=== PATIENT | male | born 1965 | race African-American/Black ===

== ENCOUNTER 2023-01-21 15:46 | Emergency (ER) | payer MEDICAID ==
[~2023-01-21] VITALS: Ht 182.9 cm; Wt 109.0 kg
[2023-01-21 15:54] VITALS: O2SAT 99
[2023-01-21] MEDS ORDERED: IBUPROFEN 400MG TABLET PO ONE (20:15)
[2023-01-21] MEDS ORDERED: IBUP-2028 MT (21:53)
[2023-01-21 22:15] VITALS: BP 133/84; PULSE 84; RESP 20; TEMP 98.2
== END 2023-01-21 22:20 | disposition home or self-care (01) ==
LOC: ER 15:46
DX: S86.012A Strain of left Achilles tendon, initial encounter (principal); M25.572 Pain in left ankle and joints of left foot; W22.8XXA Striking against or struck by other objects, initial encounter; Y93.89 Activity, other specified; Y92.89 Other specified places as the place of occurrence of the external cause; Y99.8 Other external cause status
CPT/HCPCS: 73610; 73620; 29515; 99284; Z7610